=== PATIENT | male | born 1980 | race Caucasian/White ===

== ENCOUNTER → 2022-04-06 09:49 | Outpatient (BNVA) | payer OTHER, SELFPAY | PROVIDERS: Visit Provider Emergency Medicine | DX: R68.89 Other general symptoms and signs (principal); Z20.822 Contact with and (suspected) exposure to COVID-19 | CPT/HCPCS: 87400; 87426 ==

== ENCOUNTER → 2022-10-29 14:48 | Outpatient (BNVA) | payer SELFPAY | PROVIDERS: PCP Family Medicine; Visit Provider Family Medicine | DX: L50.8 Other urticaria (principal); N52.9 Male erectile dysfunction, unspecified; Z68.30 Body mass index [BMI] 30.0-30.9, adult; M54.9 Dorsalgia, unspecified; G89.29 Other chronic pain; K62.5 Hemorrhage of anus and rectum; R21 Rash and other nonspecific skin eruption | CPT/HCPCS: 80053; 80061; 82785; 84439; 84443; 85025; 86003 ==

== ENCOUNTER → 2024-11-01 14:41 | Outpatient (BNVA) | payer OTHER, SELFPAY | PROVIDERS: PCP Family Medicine; Visit Provider Family Medicine | DX: Z13.6 Encounter for screening for cardiovascular disorders (principal) | CPT/HCPCS: 80053; 80061; 84439; 84443; 85025; 86376 ==